=== PATIENT | female | born 1955 | race African-American/Black ===

== ENCOUNTER 2017-10-03 16:37 | Emergency (ER) | payer BC ==
[~2017-10-03] VITALS: Ht 170.2 cm; Wt 79.0 kg
[2017-10-03] MEDS ORDERED: ACETAMINOPHEN 500MG TABLET PO ONE (22:30)
[2017-10-04 00:03] VITALS: BP 125/53
== END 2017-10-04 00:25 | disposition home or self-care (01) ==
LOC: ER 17:22
DX: M25.552 Pain in left hip (principal); M79.605 Pain in left leg; S80.811A Abrasion, right lower leg, initial encounter; I10 Essential (primary) hypertension; W10.0XXA Fall (on)(from) escalator, initial encounter; Y93.89 Activity, other specified; Y92.89 Other specified places as the place of occurrence of the external cause
CPT/HCPCS: 73502; 73552; 99284; Z7610